=== PATIENT | male | born 1975 | race Caucasian/White ===

== ENCOUNTER 2020-10-14 17:26 | Observation (INO) | payer OTHER ==
[~2020-10-14] VITALS: Ht 177.8 cm; Wt 131.9 kg
--- NOTE | 2020-10-14 17:47 | NUR ---
PT STATES ABOUT 1 O CLOCK HE TRIED TO GET UP AND BEGAN TO FEEL A SHARP PAIN IN CHEST. PT LAID BACK DOWN AND PAIN BEGAN TO GO AWAY. HAS SINCE FELT A PRESSURE IN CHEST AND WANTED TO GET IT CHECKED OUT.
--- NOTE | 2020-10-14 17:49 | NUR ---
PT DENIES SOB, DIAPHORESIS, AND HEADACHE.
[2020-10-14] MEDS ORDERED: ASPIRIN 81 MG TABLET CHEW PO ONE (18:00)
[2020-10-14] MEDS ORDERED: ASPIRIN 81 MG TABLET CHEW ONE (18:04)
--- NOTE | 2020-10-14 18:08 | NUR ---
X-RAY TECH WITH PT
[2020-10-14 18:11] LABS: BASOPHILS % (AUTO) 1 % (0-1); EOSINOPHILS % (AUTO) 3 % (1-7); LYMPHOCYTES % (AUTO) 30 % (22-44); MEAN CORPUSCULAR HEMOGLOBIN 30.1 pg (27.5-34.5); MEAN CORPUSCULAR HGB CONC 34.4 g/dL (33.2-36.2); MEAN PLATELET VOLUME 7.2 fL (7.4-10.4); MONOCYTES % (AUTO) 13 % (2-9); NEUTROPHILS % (AUTO) 53 % (42-75); PLATELET COUNT 274 x10^3/uL (130-400); RED BLOOD COUNT 5.14 x10^6/uL (4.38-5.82); RED CELL DISTRIBUTION WIDTH 13.2 % (9.4-14.8)
[2020-10-14 18:12] LABS: MD NO
[2020-10-14 18:24] LABS: ALBUMIN 3.8 g/dL (3.4-5.0); ANION GAP 6 mmol/L (5-15); CALCIUM 8.8 mg/dL (8.5-10.1); CHLORIDE 108 mmol/L (98-107); CREATININE 1.24 mg/dL (0.7-1.3)
[2020-10-14 18:28] LABS: TROPONIN I < 0.015 ng/mL (0.000-0.045)
--- NOTE | 2020-10-14 19:33 | NUR ---
GAVE REPORT TO JUDITH EDMNOD
[2020-10-14] MEDS ORDERED: METF500T17 PO (19:48)
[2020-10-14] MEDS ORDERED: GABA300C PO (19:48)
[2020-10-14] MEDS ORDERED: OMEP20TA62 PO (19:48)
[2020-10-14] MEDS ORDERED: ROSU5TAB PO (19:48)
[2020-10-14 20:18] VITALS: BP 115/74
[2020-10-14 20:22] VITALS: BP 115/74
[2020-10-14] MEDS ORDERED: morphine SULFATE 10 MG/ML, 1ML IVPush PRN (21:00)
[2020-10-14] MEDS ORDERED: DOCUSATE 100 MG CAPSULE PO PRN (21:00)
[2020-10-14] MEDS ORDERED: ENOXAPARIN 40 MG/0.4 ML SQ SCH (21:00)
[2020-10-14] MEDS ORDERED: ACETAMINOPHEN 325 MG TABLET PO PRN (21:00)
[2020-10-14] MEDS ORDERED: MELATONIN 5 MG TABLET PO PRN (21:00)
[2020-10-14] MEDS ORDERED: LABETALOL 5MG/ML, 20ML IVPush PRN (21:00)
[2020-10-14] MEDS ORDERED: LIDODERM 5% PATCH TD PRN (21:00)
[2020-10-15 01:13] LABS: TROPONIN I < 0.015 ng/mL (0.000-0.045)
[2020-10-15 02:09] VITALS: BP 119/72
[2020-10-15 06:29] LABS: BASOPHILS % (AUTO) 1 % (0-1); EOSINOPHILS % (AUTO) 3 % (1-7); LYMPHOCYTES % (AUTO) 39 % (22-44); MEAN CORPUSCULAR HEMOGLOBIN 30.1 pg (27.5-34.5); MEAN CORPUSCULAR HGB CONC 33.6 g/dL (33.2-36.2); MEAN PLATELET VOLUME 7.1 fL (7.4-10.4); MONOCYTES % (AUTO) 13 % (2-9); NEUTROPHILS % (AUTO) 44 % (42-75); PLATELET COUNT 256 x10^3/uL (130-400); RED BLOOD COUNT 5.05 x10^6/uL (4.38-5.82); RED CELL DISTRIBUTION WIDTH 12.8 % (9.4-14.8)
[2020-10-15 06:31] LABS: MD NO
[2020-10-15 06:34] LABS: ANION GAP 2 mmol/L (5-15); CALCIUM 8.7 mg/dL (8.5-10.1); CHLORIDE 109 mmol/L (98-107); CHOLESTEROL, TOTAL 160 mg/dL (140-239); CREATININE 0.92 mg/dL (0.7-1.3); TRIGLYCERIDES 150 mg/dL (50-200); VLDL CHOLESTEROL 30 mg/dL (0-25)
[2020-10-15 06:44] LABS: CHOL/HDL RATIO 4.1; HDL CHOL % 24 % (26-37); HDL CHOLESTEROL (DIRECT) 39 mg/dL (40-60); LDL CHOLESTEROL,CALCULATED 91 mg/dL (54-169); LDL/HDL RATIO 2.3 (0.5-3.0); TROPONIN I < 0.015 ng/mL (0.000-0.045)
[2020-10-15 06:54] VITALS: BP 129/81
[2020-10-15 06:57] LABS: FREE T4 (FREE THYROXINE) 1.12 ng/dL (0.76-1.46)
[2020-10-15] MEDS ORDERED: ASPIRIN 81 MG TABLET EC PO SCH (07:30)
[2020-10-15] MEDS ORDERED: OMEPRAZOLE 20 MG CAPSULE.DR PO SCH (09:00)
[2020-10-15] MEDS ORDERED: GABAPENTIN 300 MG CAPSULE PO SCH (09:00)
[2020-10-15 13:16] VITALS: BP 125/84
[2020-10-15] MEDS ORDERED: TEMPLATE NON-FORMULARY MED. (Rosuvastatin Calcium** (Crestor**) 5 MG) PO SCH (21:00)
[2020-10-15] MEDS ORDERED: ATORVASTATIN 20 MG TABLET PO SCH (21:00)
== END 2020-10-15 15:00 | disposition home or self-care (01) ==
LOC: ED 18:23 → EDIP 19:27 → INTOOBSV 19:27 → 5SO 20:21 → DCLOUNGE 10-15 14:46
PROVIDERS: ADMIT Internal Medicine; ATTEND Internal Medicine
DX: R07.89 Other chest pain (principal); E78.5 Hyperlipidemia, unspecified; K21.9 Gastro-esophageal reflux disease without esophagitis; E11.9 Type 2 diabetes mellitus without complications; E66.2 Morbid (severe) obesity with alveolar hypoventilation; Z85.828 Personal history of other malignant neoplasm of skin; Z79.84 Long term (current) use of oral hypoglycemic drugs; Z79.899 Other long term (current) drug therapy
CPT/HCPCS: 36415; 71045; 80048; 80061; 82040; 83036; 83735; 84439; 84443; 84484; 85025; 85379; 93005; 93017; 93306; 93356; 96372; 99285; G0378; J1650